=== PATIENT | female | born 1990 | race Caucasian/White ===

== ENCOUNTER 2018-05-13 15:06 | Emergency (ER) | payer OTHER ==
[~2018-05-13] VITALS: Ht 165.1 cm; Wt 72.7 kg
[2018-05-13] MEDS ORDERED: PRENCHW PO (15:15)
[2018-05-13 16:35] LABS: BASO % 0.2 % (0.0-1.0); EOS % 0.4 % (0.0-3.0); HEMATOCRIT 40.7 % (36.0-47.0); HEMOGLOBIN 13.8 g/dl (12.0-15.5); LYMPH # 0.9 10^3/uL (1.5-6.5); LYMPH % 10.3 % (24.0-44.0); MEAN CORPUSCULAR HEMOGLOBIN 28.9 pg (27.0-33.0); MEAN CORPUSCULAR HGB CONC 33.9 g/dl (32.0-36.5); MEAN CORPUSCULAR VOLUME 85.1 fl (80.0-96.0); MONO # 0.8 10^3/uL (0.0-0.8); NEUTROPHILS # 6.5 10^3/uL (1.8-7.7); NEUTROPHILS % 78.6 % (36.0-66.0); PLATELET COUNT, AUTOMATED 287 10^3/uL (150-450); RED BLOOD COUNT 4.78 10^6/uL (4.00-5.40); WHITE BLOOD COUNT 8.3 10^3/uL (4.0-10.0)
[2018-05-13] MEDS ORDERED: NS 1,000 ML IV ONE (16:45)
[2018-05-13] MEDS ORDERED: METOCLOPRAMIDE INJ 10MG/2ML VIAL (J2765) IV ONE (16:45)
[2018-05-13 17:01] LABS: HCG, SERUM QUALITATIVE POSITIVE (NEGATIVE)
[2018-05-13 17:04] LABS: ALBUMIN 3.9 GM/DL (3.2-5.2); ALT/SGPT 21 U/L (12-78); BILIRUBIN,DIRECT 0.1 MG/DL (0.0-0.2); BILIRUBIN,TOTAL 0.4 MG/DL (0.2-1.0); BLOOD UREA NITROGEN 7 MG/DL (7-18); CALCIUM LEVEL 9.1 MG/DL (8.5-10.1); CARBON DIOXIDE LEVEL 27 MEQ/L (21-32); CHLORIDE LEVEL 102 MEQ/L (98-107); CREATININE FOR GFR 0.49 MG/DL (0.55-1.30); GLOMERULAR FILTRATION RATE > 60.0 (>60); GLUCOSE, FASTING 86 MG/DL (70-100); LIPASE 68 U/L (73-393); POTASSIUM SERUM 4.2 MEQ/L (3.5-5.1); SODIUM LEVEL 136 MEQ/L (136-145); TOTAL PROTEIN 7.6 GM/DL (6.4-8.2)
[2018-05-13 17:57] LABS: HCG, SERUM QUANTITATIVE 43584 MIU/ML
--- NOTE | 2018-05-13 18:18 | REPVR ---
EXAM: US First Trimester, Transabdominal EXAM DATE/TIME: 05/13/2018 5:48 PM CLINICAL HISTORY: 28 years old, female; Pain; complicated by abdominal or pelvic pain; Lower; First trimester; Gestational age or lmp: 7wks3; ; Additional info: Preg abd pain eval for iup TECHNIQUE: Real-time transabdominal obstetrical ultrasound of the maternal pelvis and a first trimester , less than 14 weeks 0 days, with image documentation. COMPARISON: No relevant prior studies available. FINDINGS: GESTATION: Gestation: Single gestational sac within the uterus. Heart rate: heart rate is measured at 165 beats per minute. Placenta: Unremarkable. No subchorionic bleed. Amniotic fluid: Amniotic and chorionic fluid are normal for gestational age. BIOMETRY: Estimated gestational age: Gestational age based on crown-rump length is 7 weeks 4 days. Cody-Rump length: pole identified with a crown-rump length of 1.3 cm. MATERNAL: Uterus: Unremarkable. Cervix: Unremarkable. Right adnexa: Unremarkable. Left adnexa: Unremarkable. Intraperitoneal: No intraperitoneal free fluid. IMPRESSION: Unremarkable first trimester gestation of 7 weeks 4 days. Electronically signed by: Reginaldo Rodarte On 05/13/2018 18:18:12 PM
[2018-05-13 18:27] VITALS: BP 123/69
[2018-05-13 20:10] LABS: CHLAMYDIA DNA AMPLIFICATION NEGATIVE (NEGATIVE); GC DNA AMPLIFICATION NEGATIVE (NEGATIVE)
== END 2018-05-13 19:02 | disposition home or self-care (01) ==
LOC: M ED 15:06
DX: O21.0 Mild hyperemesis gravidarum (principal); Z87.891 Personal history of nicotine dependence; Z3A.01 Less than 8 weeks gestation of pregnancy; Z79.899 Other long term (current) drug therapy
CPT/HCPCS: 76801; 80048; 80076; 81001; 83690; 84702; 84703; 85025; 86850; 86900; 86901; 87210; 87491; 87591; 96374; 99284; J2765

== ENCOUNTER 2018-09-02 16:05 | Outpatient (CLI) | payer OTHER ==
[~2018-09-02] VITALS: Ht 165.1 cm; Wt 81.3 kg
[~2018-09-02 16:05] MED LIST: PRENCHW PO
[2018-09-02 16:21] VITALS: BP 135/78
[2018-09-02] MEDS ORDERED: MAPA500T2 PO (16:32)
[2018-09-02 16:33] VITALS: BP 124/68
[2018-09-02] MEDS ORDERED: FOLI800C PO (16:55)
[2018-09-02 17:15] VITALS: BP 118/57
[2018-09-02 17:20] LABS: HEMOGLOBIN 11.1 g/dl (12.0-15.5); MEAN CORPUSCULAR HEMOGLOBIN 29.4 pg (27.0-33.0); MEAN CORPUSCULAR HGB CONC 33.6 g/dl (32.0-36.5); MEAN CORPUSCULAR VOLUME 87.3 fl (80.0-96.0); PLATELET COUNT, AUTOMATED 303 10^3/uL (150-450); RED BLOOD COUNT 3.78 10^6/uL (4.00-5.40); WHITE BLOOD COUNT 10.4 10^3/uL (4.0-10.0)
[2018-09-02 17:51] LABS: ALBUMIN 2.7 GM/DL (3.2-5.2); ALT/SGPT 17 U/L (12-78); BILIRUBIN,TOTAL < 0.1 MG/DL (0.2-1.0); BLOOD UREA NITROGEN 9 MG/DL (7-18); CALCIUM LEVEL 8.5 MG/DL (8.5-10.1); CARBON DIOXIDE LEVEL 23 MEQ/L (21-32); CHLORIDE LEVEL 107 MEQ/L (98-107); CREATININE FOR GFR 0.62 MG/DL (0.55-1.30); GLOMERULAR FILTRATION RATE > 60.0 (>60); GLUCOSE, FASTING 84 MG/DL (70-100); LIPASE 98 U/L (73-393); POTASSIUM SERUM 3.8 MEQ/L (3.5-5.1); SODIUM LEVEL 140 MEQ/L (136-145); TOTAL PROTEIN 6.6 GM/DL (6.4-8.2)
[2018-09-02 18:20] VITALS: BP 115/61
== END 2018-09-02 18:35 | disposition home or self-care (01) ==
LOC: M LDO 16:05
PROVIDERS: ATTEND Obstetrics & Gynecology
DX: O99.89 Other specified diseases and conditions complicating pregnancy, childbirth and the puerperium (principal); R19.7 Diarrhea, unspecified; O26.892 Other specified pregnancy related conditions, second trimester; R10.84 Generalized abdominal pain; Z3A.23 23 weeks gestation of pregnancy
CPT/HCPCS: 36415; 80053; 83690; 85027; G0378; G0463

== ENCOUNTER → 2018-12-14 | Outpatient (CLI) | payer OTHER ==
[~2018-12-14] MED LIST changes: +FOLI800C PO; +MAPA500T2 PO
[2018-12-14 09:11] LABS: HEMATOCRIT 35.6 % (36.0-47.0); MEAN CORPUSCULAR HGB CONC 33.7 g/dl (32.0-36.5); PLATELET COUNT, AUTOMATED 274 10^3/uL (150-450); RED BLOOD COUNT 4.14 10^6/uL (4.00-5.40); WHITE BLOOD COUNT 7.5 10^3/uL (4.0-10.0)
[2018-12-14 09:47] LABS: ALBUMIN 2.5 GM/DL (3.2-5.2); ALT/SGPT 15 U/L (12-78); BILIRUBIN,TOTAL 0.3 MG/DL (0.2-1.0); BLOOD UREA NITROGEN 5 MG/DL (7-18); CARBON DIOXIDE LEVEL 22 MEQ/L (21-32); CHLORIDE LEVEL 108 MEQ/L (98-107); CREATININE FOR GFR 0.49 MG/DL (0.55-1.30); GLOMERULAR FILTRATION RATE > 60.0 (>60); GLUCOSE, FASTING 106 MG/DL (70-100); POTASSIUM SERUM 3.9 MEQ/L (3.5-5.1); SODIUM LEVEL 139 MEQ/L (136-145); TOTAL PROTEIN 5.9 GM/DL (6.4-8.2)
== END ==
LOC: M LAB 08:35
PROVIDERS: ATTEND Nurse Practitioner Women's Health
DX: Z34.80 Encounter for supervision of other normal pregnancy, unspecified trimester (principal); Z3A.00 Weeks of gestation of pregnancy not specified

== ENCOUNTER 2018-12-22 19:11 | Outpatient (CLI) | payer OTHER ==
[~2018-12-22] VITALS: Ht 165.1 cm; Wt 89.6 kg
--- NOTE | 2018-12-22 20:40 | IPNPDOC ---
Text Note Date of Service The patient was seen on 12/22/18. NOTE OB Considerations: - GBS positive - no PCN allergy - Overweight BMI 25.34 with excessive weight gain - Itching rash - Bile Acids sent, likely PUPPPs Sandra is a 28yo at 39+2wks by LMP (RAYMUNDO [id number]) presents with regular contractions on the last 2 hours. She reports irregular contractions over the last 3 days, but were more consistent today. She denies vaginal bleeding, LOF, headache, vision changes, or RUQ pain. Reports active movement. VS: Reviewed, one mild range otherwise normotensive, nontachycardic, afebrile GEN: WNWD, NAD ABD: Soft, Gravid, NT EXT: No Edema DCE: 50/high - intact FHR: 145bpm, Moderate Variability, + Accelerations, - Decelerations TOCO: q4-6min, palpate mild A/P: SIUP at 39wks, presenting for contraction - likely false labor vs early labor. VS reviewed with patient - one mild range blood pressure without dx of HTN without symptoms - normal repeat. Discussed that this is likely due to pain. Discussed that if repeat BP elevated, would recommend labs to rule out Pre Ecla mpsia. - Discussed return precautions/signs/symptoms of Pre Eclampsia. - Discussed Strict return and Labor precautions - Encouraged hydration - Encouraged Kick Counts - She has close follow up [id number] DO LARA Trujillo CRYSTAL B. DO Dec 22, 2018 20:40
== END 2018-12-22 20:25 | disposition home or self-care (01) ==
LOC: M LDO 19:11
PROVIDERS: ATTEND Obstetrics & Gynecology
DX: O26.893 Other specified pregnancy related conditions, third trimester (principal); R10.2 Pelvic and perineal pain; O47.1 False labor at or after 37 completed weeks of gestation; Z3A.39 39 weeks gestation of pregnancy
CPT/HCPCS: 59025; G0378; G0463

== ENCOUNTER 2018-12-27 02:44 | Inpatient (IN) | payer OTHER ==
[~2018-12-27] VITALS: Ht 165.1 cm; Wt 88.4 kg
[2018-12-27] VITALS (31 sets, daily range): BP systolic 112–151; BP diastolic 57–88
[2018-12-27] MEDS ORDERED: RANI1SYP PO (03:02)
[2018-12-27] MEDS ORDERED: LACTATED RINGER'S 1000 ML IV STA (03:42)
[2018-12-27] MEDS ORDERED: PENICILLIN G POTASSIUM IV 5 MU in D5W MINI-BAG PLUS 100 ML IV STA (03:42)
[2018-12-27 04:19] LABS: HEMATOCRIT 38.1 % (36.0-47.0); HEMOGLOBIN 12.9 g/dl (12.0-15.5); MEAN CORPUSCULAR HEMOGLOBIN 29.4 pg (27.0-33.0); MEAN CORPUSCULAR HGB CONC 33.9 g/dl (32.0-36.5); MEAN CORPUSCULAR VOLUME 86.8 fl (80.0-96.0); PLATELET COUNT, AUTOMATED 279 10^3/uL (150-450); RED BLOOD COUNT 4.39 10^6/uL (4.00-5.40); WHITE BLOOD COUNT 8.4 10^3/uL (4.0-10.0)
[2018-12-27] MEDS: LR 1,000 ML IV SCH ×2 (04:40→11:44)
[2018-12-27] MEDS ORDERED: CALCIUM CARBONATE 500 MG CHEW U/D PO PRN (05:00)
[2018-12-27] MEDS ORDERED: FENTANYL 2MCG/ML ROPIVACAINE 0.2% IN 0.9% NACL 100ML IVBAG As Ordered ONE (05:50)
[2018-12-27] MEDS ORDERED: EPIDURAL/PCA KEYS XX PRN (06:51)
[2018-12-27] MEDS ORDERED: ONDANSETRON 4MG/2ML VIAL (J2405) IV PRN ×2 (06:51→14:30)
[2018-12-27] MEDS ORDERED: EPIDURAL COMMENT XX SCH (06:51)
[2018-12-27] MEDS ORDERED: NALOXONE INJ 0.4 MG/1 ML VIAL (J2310) IV PRN (06:51)
[2018-12-27] MEDS ORDERED: REFRIGERATOR IV KEYS XX PRN (06:51)
[2018-12-27] MEDS ORDERED: diphenhydrAMINE INJ 50MG/ML VIAL (J1200) IV PRN (06:51)
[2018-12-27] MEDS ORDERED: FENTANYL/ROPIVACAINE/NACL BAG 100 ML EPIDURAL SCH (06:51)
[2018-12-27] MEDS ORDERED: LACTATED RINGER'S 1000 ML IV PRN (06:51)
[2018-12-27] MEDS ORDERED: ePHEDrine SULFATE 25 MG/5 ML(5MG/ML) SYRINGE IV PRN (06:51)
--- NOTE | 2018-12-27 06:51 | HPEPDOC ---
Obstetrical History & Physical General Date of Admission Dec 27, 2018 at 03:42 History of Present Illness 28 yo at 40+0 weeks today presented to L&D with regular, painful contractions that have been worsening throughout the evening. She denies any bleeding or leakage of fluid. She endorses excellent movement. is uncomplicated. Chief Complaint: Contractions, term Information Provided By: Patient Age: 28 : 2 Term: 1 Pre-term: 0 Abortions: 0 Livin Care Care: Good Care Dating Final EDC: Dec 27, 2018 Final EDC for Daily Update: Dec 27, 2018 Final EDC by: LMP LMP: Mar 22, 2018 1st Trimester Date: May 21, 2018 (8+6 week US on 21May2018 c/w LMP dating. RAYMUNDO remains [id number].) Antepartum Course Diagnos(e)s Overweight --> normal glucose screening Past Medical History Past Obstetrical History : Past Obstetrical History: Multigravida (Term in 2016) Type of Delivery: Spontaneous Vaginal Del. Complications: No APPLICATION SECURITY ENGINEER History: No pertinent history Past Medical History Medical History Overweight MTHFR heterozygous ---> no elevated thrombotic risk Surgical History: V[place] teeth Family History Significant Family History: No pertinent family hx Family History Non contributory Social History Marital Status: Family situation: Spouse/partner home Psychosocial History: No pertinent psych hx * Smoker: non-smoker Alcohol: Denies Drugs: denies Imunizations Tdap status: current Influenza Status: current Allergies Coded Allergies: No Known Allergies (Unverified , 05/13/18) Medications Scheduled Folic Acid (Folic Acid) Unknown Strength Capsule, 1 TAB PO DAILY Pnv No.118/Iron Fumarate/FA ( 19 Chewable Tablet) 1 Chw Chw, 1 TAB PO DAILY Ranitidine Hcl (Ranitidine HCl) 15 Mg/Ml Syrp, 75 MG PO BID Miscellaneous Medications Acetaminophen (Mapap) 500 Mg Tablet, 1,000 MG PO Physical Examination Physical Examination GENERAL: Alert and oriented times three. ABDOMEN: Gravid and non-tender to touch. FETUS: Is vertex (VTX) by sterile vaginal examination (SVE) EXTREMITIES: No edema. Vital Signs/I&O Vital Signs Date Time Temp Pulse Resp B/P (MAP) Pulse Ox O2 Delivery O2 Flow Rate FiO2 12/27/18 06:28 105 151/79 (103) 12/27/18 03:04 98.4 18 Laboratory Data 24H LABS Laboratory Tests 2 12/27/18 03:44: Serology Scanned Report Hepatitis B Testing 12/27/18 04:11: Nucleated Red Blood Cells % (auto) 0.0 CBC/BMP Laboratory Tests 12/27/18 04:11 Red Blood Count 4.39, Mean Corpuscular Volume 86.8, Mean Corpuscular Hemoglobin 29.4, Mean Corpuscular Hemoglobin Concent 33.9, Red Cell Distribution Width 13.1 Urine Culture: No Growth Pertinent Laboratoy Data Blood Type: A+ RBC Antibody Screen: Negative HIV: Negative Hepatitis B: Negative Hepatitis C: Unknown Rapid Plasma Reagin: Nonreactive Rubella: Immune Varicella: Immune Chlamydia/Gonorrhea: Negative Group B Streptococcus: Positive Quad Screen Test: Unknown Cystic Fibrosis: Negative Glucose Tolerance Test: 116 Anatomy Ultrasound Placenta Location: Anterior Normal Anatomy: Yes Placenta Previa: No Steroid Therapy Steroid Therapy: No Vaginal Examination Dilation: 3 cm Effacement: 80% Station: -3 Cervical Consistency: Soft Cervical Position: Middle Presentation: Cephalic presentation Position: Vertex (occiput) Assessment Heart Rate (FHR): 135 Variability: Moderate Accelerations: Positive Decelerations: None Tocometer Contractions: Yes Frequency: regular Duration: greater than 60 seconds Strength: palpated as strong Assessment/Plan Assessment 28 yo at 40+0 weeks presented to L&D in early labor. Plan Admit to L&D for expectant management of labor. Will augment as clinically indicated. Apply IV fluids. Start PCN for GBS prophylaxis. CBC, T+S. Regular diet. Patient may have epidural if desired. Anticipate . DO ORLANDO Gabriel CHRISTOPHER J. DO Dec 27, 2018 06:51
[2018-12-27] MEDS: PENICILLIN G POTASSIUM IV 2.5 MU in IV 1 EA IV SCH ×2 (08:32→12:54)
[2018-12-27] MEDS ORDERED: OXYTOCIN 30 UNITS IN 0.9% NaCl 500ML IV BAG (J2590) As Ordered ONE (13:37)
[2018-12-27] MEDS ORDERED: ACETAMINOPHEN 500 MG TAB PO PRN (14:30)
[2018-12-27] MEDS ORDERED: DIBUCAINE 1% OINTMENT 30GM TOP PRN (14:30)
[2018-12-27] MEDS ORDERED: METHYLERGONOVINE MALEATE 0.2 MG TAB PO PRN (14:30)
[2018-12-27] MEDS ORDERED: MOM 30ML SUSPENSION UDC PO PRN (14:30)
[2018-12-27] MEDS ORDERED: OXYTOCIN DRIP 30 UNITS in IV 1 EA IV SCH (15:00)
[2018-12-27] MEDS: IBUPROFEN 800 MG TAB PO PRN ×2 (15:22→23:05)
[2018-12-27] MEDS: PRENATAL VITAMINS CHEWABLE TABLET PO SCH (15:22)
[2018-12-27] MEDS ORDERED: DOCUSATE SODIUM 100 MG CAP PO PRN (21:00)
[2018-12-28 05:58] VITALS: BP 131/65
--- NOTE | 2018-12-28 06:07 | IPNPDOC ---
Progress Note Date of Service: Dec 28, 2018 Day#: 1 Progress Note SUBJECT: patient is a 28 yo S/P PPD #2, without concerns today. She h as been ambulating, voiding spontaneously without issue and tolerating regular diet. Breast feeding without issue. Patient plans for nexplanon for contraceptive. VITAL SIGNS: Within normal limits, afebrile. Alert and oriented times three. Abdomen: Fundus firm at U-2. Soft, NTTP LE: no edema/erythema/tenderness ASSESSMENT: patient is a ppd #1, doing well. PLAN: 1. Discharge to home today if baby is discharge. 2. Encourage breast feeding and ambulation. 3. Contraceptive counseling. patient may get nexplanon 2wks . 4. Routine PP visit in 6 weeks in clinic. 5. Discussed return precautions at length. VS, I&O, 24H, Fishbone Vital Signs/I&O Vital Signs Date Time Temp Pulse Resp B/P (MAP) Pulse Ox O2 Delivery O2 Flow Rate FiO2 12/28/18 05:58 98.2 106 17 131/65 (87) 97 I&O- Last 24 Hours up to 6 AM 12/28/18 06:00 Intake Total 2960 ml Output Total 2100 ml Balance 860 ml SWEETIE TRUJILLO DO Dec 28, 2018 06:07
--- NOTE | 2018-12-28 06:17 | OBDS ---
[facility] Obstetrical Discharge Sum. Obstetrical Discharge Summary Ancillary Services Manager Therapy/Provider: SWEETIE TRUJILLO DO Date: Dec 28, 2018 Time: 02:00 : 2 Term: 2 Pre-term: 0 Abortions: 0 Livin VDRL: ABO Blood Group (A) Rh: Positive Rubella: Immune Infant Sex: Male Infant Weight: grams (4340g) Anesthesia: Regional Anesthesia A/P, Post Course List any complications Admission diagnosis: Labor Discharge diagnosis: Condition at Discharge: stable Discharge Instructions:Home Activity: as tolerated Diet:regular Medications: filled at [facility] Follow-up: 6wks Hospital Course: Patient admitted for labor at 40wks gestation. She progressed to have spontaneous vaginal delivery. course uncomplicated and she meets discharge criteria on day #1. SWEETIE TRUJILLO DO Dec 28, 2018 06:14
[2018-12-28] MEDS: IBUPROFEN 800 MG TAB PO PRN ×2 (06:22→17:40)
[2018-12-28] MEDS ORDERED: INFLUENZA QUADRIVALENT PF VACCINE 0.5ML SYRINGE (90686) IM ONE (09:00)
[2018-12-28] MEDS: PRENATAL VITAMINS CHEWABLE TABLET PO SCH (10:05)
[2018-12-28 18:00] VITALS: BP 131/70
[2018-12-29 06:08] VITALS: BP 120/58
[2018-12-29] MEDS: PRENATAL VITAMINS CHEWABLE TABLET PO SCH (07:22)
--- NOTE | 2018-12-29 07:31 | OBDS ---
[facility] Obstetrical Discharge Sum. Obstetrical Discharge Summary [employer]/Provider: Marion Barrios MD Date: Dec 29, 2018 Time: 07:27 : 2 Term: 2 Pre-term: 0 Abortions: 0 Livin VDRL: Non-Reactive Rh: Positive Rubella: Immune Labor 28y/o admitted at 40 wks in early labor. She received PCN for GBS prophylaxis. She progressed with AROM to vaginal delivery. Delivery Uncomplicated of viable male infant, weighing 4340g. EBL 250cc. No l acerations. Infant Sex: Male Infant Weight: pounds Anesthesia: Regional Anesthesia Episiotomy None A/P, Post Course List any complications Admission diagnosis: Term Labor Discharge diagnosis: Uncomplicated Vaginal Delivery Condition at Discharge: Stable Discharge Instructions: Discharge Home Activity: As tolerated. Pelvic rest x6 weeks. Diet: Regular Medications: Placed at [facility] Follow-up: Call clinic to schedule 6 week appointment Marion Barrios MD Dec 29, 2018 07:31
--- NOTE | 2018-12-29 08:30 | IPNPDOC ---
Text Note Date of Service The patient was seen on 12/29/18. NOTE 28y/o PPD#2 s/p uncomplicated at term. Patient is doing well today and is without complaints. She is tolerating regular diet, voiding, and had BM this morning. She is ambulating without difficulty and breast feeding well. Desires Nexplanon for contraception. PE: VS as below, normotensive afebrile HEENT: normocephalic, atraumatic CV: well perfused Abd: Non tender, non distended. Fundus at U-2. Ext: improving edema. No erythema or calf tenderness. A/p: 28y/o recovering well on PPD#2 and meeting discharge criteria -Continue to encourage hydration, ambulation, breast feeding -Regular diet -Pelvic rest x 6 weeks -Contraception: Desires Nexplanon - to call office to schedule -RH positive, rubella immune -Meds placed in [place] [facility] -Dispo: Discharge home with VS,Fishbone, I+O VS, Fishbone, I+O Vital Signs Date Time Temp Pulse Resp B/P (MAP) Pulse Ox O2 Delivery O2 Flow Rate FiO2 12/29/18 06:08 98.3 78 18 120/58 (78) 12/28/18 18:00 97 Marion Barrios MD Dec 29, 2018 08:30
[2018-12-29] MEDS: IBUPROFEN 800 MG TAB PO PRN (10:51)
== END 2018-12-29 12:22 | disposition home or self-care (01) | DRG 807 ==
LOC: M LDO 02:44 → M LDI 03:42 → M OBS 16:14
PROVIDERS: ADMIT Obstetrics & Gynecology; ATTEND Obstetrics & Gynecology
PROC: 10E0XZZ Delivery of Products of Conception, External Approach (ICD-10-PCS; principal; 2018-12-27)
DX: O48.0 Post-term pregnancy (principal); Z37.0 Single live birth; Z3A.40 40 weeks gestation of pregnancy

== ENCOUNTER 2019-10-12 10:44 | Emergency (ER) | payer OTHER ==
[~2019-10-12] VITALS: Ht 165.1 cm; Wt 77.1 kg
[~2019-10-12 10:44] MED LIST changes: +RANI1SYP PO
[2019-10-12] MEDS ORDERED: ZYRTTAB8 PO (10:53)
[2019-10-12] MEDS ORDERED: MELO15TA28 PO (10:53)
[2019-10-12] MEDS ORDERED: TRAZ-252 PO (10:53)
[2019-10-12] MEDS ORDERED: BUPR150T3 PO (10:53)
[2019-10-12] MEDS ORDERED: CLIN150C14 PO (10:53)
[2019-10-12] MEDS ORDERED: METH4TAB8 PO (10:53)
[2019-10-12] MEDS ORDERED: ACETAMINOPHEN 500 MG TAB PO ONE (12:00)
[2019-10-12 12:22] LABS: BASO % 0.2 % (0.0-1.0); EOS % 0.3 % (0.0-3.0); HEMATOCRIT 44.4 % (36.0-47.0); HEMOGLOBIN 14.8 g/dl (12.0-15.5); LYMPH # 1.3 10^3/uL (1.5-5.0); LYMPH % 13.2 % (24.0-44.0); MEAN CORPUSCULAR HEMOGLOBIN 28.6 pg (27.0-33.0); MEAN CORPUSCULAR HGB CONC 33.3 g/dl (32.0-36.5); MEAN CORPUSCULAR VOLUME 85.7 fl (80.0-96.0); MONO # 0.5 10^3/uL (0.0-0.8); MONO % 4.5 % (0.0-5.0); NEUTROPHILS # 8.3 10^3/uL (1.5-8.5); NEUTROPHILS % 81.1 % (36.0-66.0); PLATELET COUNT, AUTOMATED 398 10^3/uL (150-450); RED BLOOD COUNT 5.18 10^6/uL (4.00-5.40); WHITE BLOOD COUNT 10.2 10^3/uL (4.0-10.0)
[2019-10-12 12:40] LABS: ALT/SGPT 26 U/L (12-78); BILIRUBIN,DIRECT < 0.1 MG/DL (0.0-0.2); BILIRUBIN,TOTAL 0.3 MG/DL (0.2-1.0); BLOOD UREA NITROGEN 17 MG/DL (7-18); CALCIUM LEVEL 9.3 MG/DL (8.5-10.1); CARBON DIOXIDE LEVEL 24 MEQ/L (21-32); CHLORIDE LEVEL 107 MEQ/L (98-107); CREATININE FOR GFR 0.76 MG/DL (0.55-1.30); GLOMERULAR FILTRATION RATE > 60.0 (>60); GLUCOSE, FASTING 99 MG/DL (70-100); POTASSIUM SERUM 4.4 MEQ/L (3.5-5.1); SODIUM LEVEL 139 MEQ/L (136-145); TOTAL PROTEIN 7.7 GM/DL (6.4-8.2)
[2019-10-12] MEDS ORDERED: NEOM1SOL19 AS (13:07)
[2019-10-12] MEDS ORDERED: [UNRECOGNIZED DRUG - CODE] AS (13:07)
[2019-10-12 13:13] VITALS: BP 139/63
== END 2019-10-12 13:19 | disposition home or self-care (01) ==
LOC: M ED 10:44
DX: H60.92 Unspecified otitis externa, left ear (principal); H66.92 Otitis media, unspecified, left ear; F33.9 Major depressive disorder, recurrent, unspecified; Z79.899 Other long term (current) drug therapy; F17.210 Nicotine dependence, cigarettes, uncomplicated